=== PATIENT | female | born 1950 | race Two or more races ===

== ENCOUNTER 2018-09-27 10:27 | Emergency (ER) | payer OTHER ==
[~2018-09-27] VITALS: Ht 157.5 cm; Wt 63.5 kg
[~2018-09-27 10:27] MED LIST: CEFTIN250 MG PO; CLEOCIN HCL300 MG PO; CYCLOBENZAPRINE10 MG PO; DOLOGESIC CAPLE1 TAB PO; GABAPENTIN600 MG PO; HYZAAR 50-12.1 UDTAB; PERCOCET 10/3251 TAB; URIN D.S. TABLE1 TAB PO; [UNRECOGNIZED DRUG - OTHER]
== END 2018-09-27 15:56 | disposition home or self-care (01) ==
LOC: ER 10:27
DX: J11.1 Influenza due to unidentified influenza virus with other respiratory manifestations (principal); R42 Dizziness and giddiness

== ENCOUNTER 2021-01-21 09:44 | Emergency (ER) | payer OTHER ==
[~2021-01-21] VITALS: Ht 157.5 cm; Wt 63.5 kg
[2021-01-21] MEDS ORDERED: PYRIDIUM DS200 MG PO (16:31)
== END 2021-01-21 17:02 | disposition home or self-care (01) ==
LOC: ER 09:44
DX: N39.0 Urinary tract infection, site not specified (principal); R10.2 Pelvic and perineal pain

== ENCOUNTER 2023-02-11 15:36 | Emergency (ER) | payer OTHER ==
[~2023-02-11] VITALS: Ht 157.5 cm; Wt 62.6 kg
[~2023-02-11 15:36] MED LIST changes: +PYRIDIUM DS200 MG PO
== END 2023-02-11 18:43 | disposition home or self-care (01) ==
LOC: ER 15:36
DX: M54.16 Radiculopathy, lumbar region (principal); Z91.041 Radiographic dye allergy status
CPT/HCPCS: 96372; 99282; J1885